=== PATIENT | female | born 1985 | race Caucasian/White ===

== ENCOUNTER 2021-01-09 20:49 | Emergency (ER) | payer OTHER, SELFPAY ==
[2021-01-09 20:57] VITALS: BP 115/74; PULSE 93; RESP 18; TEMP 37.1; O2SAT 98; BMI 28.1
[2021-01-09 21:51] VITALS: BP 102/70; PULSE 92; RESP 16; O2SAT 98
--- NOTE | 2021-01-09 22:27 | ED_ITS ---
HPI - Overdose General Chief Complaint: Overdose Stated Complaint: od accidental Time Seen by Provider: 01/09/21 22:00 Source: patient Mode of arrival: ambulatory History of Present Illness HPI Narrative: This is a 35-year-old female who presents with concerns after she misread the instructions for her prednisone taper today and took all 24 mg of prednisone at once instead of to tablets 3 times a day. This was the initial dosage of her taper as she was evaluated at urgent care for shortness of breath and asthma exacerbation. Patient states that she feels otherwise much better and feels that the asthma was exacerbated by a recent diagnosis of COVID-19 for which she is on her 10th day of isolation. Patient denies any thoughts of wanting to kill herself or harm anybody else and denies any symptoms of depression. complaint: accidental overdose Related Data Home Medications Medication Instructions Recorded Confirmed flu vac [id number] 36mos up(PF) ml IM 09/10/20 12/26/20 fluocinonide 0.05 % topical TOPICAL 09/10/20 12/26/20 ointment ketoconazole 2 % shampoo 1 applic TOPICAL 2XW 09/10/20 12/26/20 norethindrone 1 mg-ethinyl 1 tab PO DAILY 09/10/20 12/26/20 estradiol 20 mcg (21)-iron 75 mg (7) tablet Previous Rx's Medication Instructions Recorded cetirizine 5 mg-pseudoephedrine ER 1 tab PO Q12H PRN #60 tab 09/10/20 120 mg tablet,extended release,12hr fluticasone propionate 50 2 spray INTRANASAL DAILY #15.8 ml 09/10/20 mcg/actuation nasal spray,suspension ciprofloxacin HCl 500 mg tablet 500 mg PO BID #14 tab 09/11/20 azithromycin 250 mg tablet See Rx Instructions PO .COMPLEX #6 12/31/20 tab Allergies Allergy/AdvReac Type Severity Reaction Status Date / Time ibuprofen [Ibuprofen] Allergy Severe THROAT Verified 12/26/20 13:33 SWELLS, Tongue swelling Penicillins Allergy Severe THROAT Verified 12/26/20 13:33 SWELLS Review of Systems Review of Systems: Pertinent positives and negatives as stated in HPI 10 point review of systems is otherwise negative. PMFSH Past Medical History Source: nursing notes reviewed Medical History (Updated 01/09/21 @ 22:34 by Yuliet Sainz MD) Asthma Surgical History History of tubal ligation Family History Family History Father Medical history unknown Mother Medical history unknown Maternal Grandmother Hypertension Maternal Grandfather Hypertension Paternal Grandfather No problems noted. Social History Social History Alcohol intake: never Smoking Status: Unknown if ever smoked Smoked in Last 30 Days: No Use of substances other than those prescribed or required for medical reasons: No Advance Directives: No Advance Directives Information Provided: No Physical Exam Vital Signs: Vital Signs: Last Vital Signs Temp 98.7 F 01/09/21 20:57 Pulse 92 01/09/21 21:51 Resp 16 01/09/21 21:51 BP 102/70 01/09/21 21:51 Pulse Ox 98 01/09/21 21:51 Body Mass Index 28.1 VITAL SIGNS: Reviewed. GENERAL: Well developed, well nourished, in no acute distress. OROPHARYNX: no oral lesions noted, posterior pharynx clear NECK: Supple, no adenopathy LUNGS: Normal breath sounds. No adventitious sounds or accessory muscle use. SpO2<98> CARDIOVASCULAR: Regular rate and rhythm without noted murmurs ABDOMEN: Soft, non-tender, non-distended with bowel sounds. NEUROLOGIC: Alert and oriented x 4 PSYCH: Normal affect, thought process intact Course Course Course Narrative: This is a 35-year-old female with history and clinical presentation of accidental overdose of prednisone due to unclear understanding of prescription directions. Patient denies any suicidal ideation and was counseled on side effects of steroid such as increased acid production, hypertension, elevated blood sugar. She was encouraged to otherwise follow the taper instructions for day 2 and to follow-up with her primary care provider. Discharge Plan Discharge Clinical Impression: Accidental overdose Qualifiers: Encounter type: initial encounter Qualified Code(s): T50.901A - Poisoning by unspecified drugs, medicaments and biological substances, accidental (unintentional), initial encounter Patient Disposition: Home, Self-Care Instructions: Asthma (ED) Additional Instructions: Please follow-up with your primary care provider in the next 2-3 days for re- evaluation outpatient management of your asthma. Do not hesitate to return to the emergency department should you experience any acute worsening of your symptoms. Prescriptions: No Action azithromycin 250 mg tablet See Rx Instructions PO .COMPLEX Qty: 6 RF: 0 Afluria Qd 2020-21(3yr up)(PF) 60 mcg (15 mcg x 4)/0.5 mL syringe IM RF: 0 norethindrone-e.estradiol-iron 1 mg-20 mcg (21)/75 mg (7) tablet 1 tab PO DAILY RF: 0 fluocinonide 0.05 % ointment topical RF: 0 ketoconazole 2 % shampoo 1 applic topical 2XW RF: 0 cetirizine-pseudoephedrine [Zyrtec-D] 5-120 mg tablet extended release 12 hr 1 tab PO Q12H PRN (Reason: allergy symptoms) Qty: 60 RF: 0 fluticasone propionate [Flonase Allergy Relief] 50 mcg/actuation spray,suspension 2 spray intranasal DAILY Qty: 15.8 RF: 0 ciprofloxacin HCl 500 mg tablet 500 mg PO BID Qty: 14 RF: 0 Referrals: Jackson Figueroa MD [Primary Care Provider] - 2 days (Re-evaluation outpatient management asthma exacerbation)
[2021-01-09 22:28] LABS: Glucose, Whole Blood 106 mg/dL (60-115)
== END 2021-01-09 22:41 | disposition home or self-care (01) ==
PROVIDERS: Emergency Provider Student in an Organized Health Care Education/Training Program; PCP Internal Medicine
DX: T38.0X1A Poisoning by glucocorticoids and synthetic analogues, accidental (unintentional), initial encounter (principal); X58.XXXA Exposure to other specified factors, initial encounter; J45.909 Unspecified asthma, uncomplicated; R06.02 Shortness of breath; Y92.9 Unspecified place or not applicable; Z86.16 Personal history of COVID-19; Z79.899 Other long term (current) drug therapy
CPT/HCPCS: 82947; 99285

== ENCOUNTER 2021-01-15 11:34 | Outpatient (REF) | payer OTHER, SELFPAY ==
--- NOTE | ~2021-01-15 | XR_ITS ---
EXAMINATION: XR CHEST CLINICAL INFORMATION: Shortness of breath. COMPARISON: Chest 04/12/2017 TECHNIQUE: 2 views of the chest were obtained. FINDINGS: No significant abnormality is noted involving the heart, lungs, mediastinum, bony thorax or soft tissues. XR/XR chest 2V IMPRESSION: Unremarkable chest examination.
== END 2021-01-15 11:35 | disposition home or self-care (01) ==
LOC: HO.HMGCX 11:34
PROVIDERS: PCP Internal Medicine; Visit Provider Hospitalist
DX: R06.02 Shortness of breath (principal)
CPT/HCPCS: 71046

== ENCOUNTER → 2021-08-20 13:58 | Outpatient (BNVA) | payer SELFPAY | PROVIDERS: PCP Internal Medicine; Visit Provider Internal Medicine | DX: Z02.79 Encounter for issue of other medical certificate (principal) ==

== ENCOUNTER 2022-07-06 10:45 | Outpatient (REF) | payer OTHER, SELFPAY ==
--- NOTE | ~2022-07-06 | XR_ITS ---
EXAMINATION: XR FOOT, LEFT CLINICAL INFORMATION: Left foot pain COMPARISON: None TECHNIQUE: AP, lateral, and oblique views of the left foot. FINDINGS: No fracture or dislocation. Joint spaces throughout the foot are maintained. No osteophytes or erosions. Lisfranc alignment is within normal limits. Small plantar calcaneal enthesophyte/spur, unchanged. No ankle joint effusion. XR/XR foot LT 2V IMPRESSION: 1. No osseous injury or osteoarthritic change. 2. Small plantar cranial spur.
--- NOTE | ~2022-07-06 | XR_ITS ---
EXAMINATION: XR LUMBOSACRAL SPINE CLINICAL INFORMATION: Dorsalgia COMPARISON: Lumbar spine radiographs 04/05/2012 TECHNIQUE: Three views of the lumbosacral spine. FINDINGS: Normal alignment of the lumbar spine. No listhesis. Vertebral body heights and intervertebral disc heights are maintained. No endplate osteophytes. No pars defects. SI joints appear congruent and intact. XR/XR lumbar spine 2-3V IMPRESSION: 1. No subluxation or fracture. 2. Preserved intervertebral disc heights.
== END 2022-07-06 10:46 | disposition home or self-care (01) ==
LOC: HO.XRAY 10:45
PROVIDERS: PCP Internal Medicine; Visit Provider Internal Medicine
DX: M54.9 Dorsalgia, unspecified (principal); M79.672 Pain in left foot
CPT/HCPCS: 72100; 73620

== ENCOUNTER 2024-10-12 10:24 | Emergency (ER) | payer OTHER, SELFPAY ==
[2024-10-12 10:35] VITALS: BP 120/76; PULSE 78; RESP 16; TEMP 36.6; O2SAT 100; BMI 30.5
--- NOTE | 2024-10-12 12:15 | ED_ITS ---
HPI - Dental/Oral General Chief complaint: Dental/Oral Stated complaint: Dental Infection Time Seen by Provider: 10/12/24 12:01 Source: patient Mode of arrival: ambulatory Limitations: no limitations History of Present Illness ED Provider: Dr. Randa Farris HPI Narrative: Patient comes to the emergency room complaining dental pain in the right mandibular side since yesterday night. Patient states that when she was eating, it started hurting. Patient denies any ear pain, any difficulty swallowing. Patient states that she would try to go to the her dentist today but it was closed. Related Data Home Medications ?Medication ?Instructions ?Recorded ?Confirmed flu vac [id number] 36mos up(PF) 60 ml IM 09/10/20 07/06/22 mcg (15 mcg x4)/0.5 mL IM syringe Previous Rx's ?Medication ?Instructions ?Recorded cetirizine 5 mg-pseudoephedrine ER 1 tab PO Q12H PRN allergy symptoms 09/10/20 120 mg tablet,extended #60 tabs release,12hr (Zyrtec-D) ketoconazole 2 % shampoo 1 appl topical 3XW #120 mL 10/29/21 tobramycin 0.3 % eye drops (Tobrex) 1 drp ophthalmic (eye) Q4H #5 mL 04/27/22 albuterol sulfate 90 mcg/actuation 2 puff inhalation Q4-6H #8.5 grams 07/06/22 aerosol inhaler (ProAir HFA) clindamycin HCl 150 mg capsule 150 mg PO TID 7 days #21 caps 10/12/24 tramadol 50 mg tablet 50 mg PO BID PRN pain #7 tabs 10/12/24 tramadol 50 mg tablet 50 mg PO BID PRN pain #7 tabs 10/12/24 Allergies Allergy/AdvReac Type Severity Reaction Status Date / Time ibuprofen [Ibuprofen] Allergy Severe THROAT Verified 10/12/24 10:38 SAGE, Tongue swelling Penicillins Allergy Severe THROAT Verified 10/12/24 10:38 SAGE Review of Systems Review of Systems: Constitutional : No Weight loss, No Fever, No Chills, No Night Sweats, No Fa tigue, No Malaise ENT/Mouth : Complaining of dental pain right mandibular side,No Hearing loss, No Ear Pain, No Nasal Congestion, No Sinus Pain, No Hoarseness, No sore throat, No Rhinorrhea, No Swallowing Difficulty Eyes: No Eye Pain, No Swelling, No Redness, No Foreign Body, No Discharge, No Vision Changes Cardiovascular : No Chest Pain, No SOB, No Dyspnea on Exertion, No Orthopnea, No Edema, No Palpitations Respiratory : No Cough, No Sputum, No Wheezing, No Smoke Exposure, No Dyspnea Gastrointestinal : No Nausea, No Vomiting, No Diarrhea, No Constipation, No abdominal Pain, No Hematochezia, No Melena Genitourinary : no irregular bleeding, No Dysuria, No Urinary Frequency, No Hematuria, No Urinary Incontinence, No Urgency, No Flank Pain, No Urinary Flow Changes, No Hesitancy Musculoskeletal : No joint pain, No Myalgias, No Joint Swelling Skin : No Skin Lesions, No rash Neuro : No Weakness, No Numbness, No Paresthesias, No Loss of Consciousness, No Dizziness, No Headache Psych : No Anxiety/Panic, No Depression, No SI/HI/AH/VH, No Social Issues, Heme/Lymph: No Bruising, No Bleeding,No Lymphadenopathy Endocrine : No Polyuria, No Polydipsia, No Temperature Intolerance [facility] Past Medical History Medical History Seborrheic dermatitis Asthma Surgical History History of tubal ligation Family History Family History Father Medical history unknown Mother Medical history unknown Maternal Grandmother Hypertension Maternal Grandfather Hypertension Paternal Grandfather No problems noted. Social History Social History Housing: House Alcohol intake: never Patient Tobacco Use Status: Former Tobacco user Tobacco use type: Cigarette e-Cigarette/Vaping Use: Never Used Second Hand Smoke Exposure: No Advance Directives: No Advance Directives Information Provided: Yes Do you have a plan to hurt others: No Plan service: No Current occupational status: employed Cognitive needs: No Hearing needs: No Vision needs: No Physical Exam Vital Signs: Vital Signs: Last Vital Signs Temp 97.8 F 10/12/24 12:58 Pulse 78 10/12/24 12:58 Resp 16 10/12/24 12:58 BP 120/76 10/12/24 12:58 Pulse Ox 100 10/12/24 12:58 O2 Del Method Room Air 10/12/24 12:58 BMI result Body Mass Index 30.5 Const: Other: Appearance: Alert. Oriented X3. No acute distress. Eyes: Pupils equal, round and reactive to light. ENT: Pharynx normal. there is no obvious abscess that could be drained. There is no erythema or gingivitis that is obvious. However, patient has significant pain to palpation over the last molar on the right maxillary side. Tympanic ear membranes bilaterally within normal limits. No mastoid bone tenderness bilaterally Neck: Normal inspection. Neck supple. No lymph nodes noted. No crepitus CVS: Normal heart rate and rhythm. Pulses normal. Normal S1 and S2 Respiratory: No respiratory distress. Breath sounds normal. No Wheezing. No rales Abdomen: Soft and nontender. No rigidity. No distention. Skin: Skin warm and dry. Normal skin color. Normal skin turgor. Extremities: No lower extremity edema. No Lacerations. No Rash Neuro: Oriented X 3. No motor deficit. No sensory deficit. Moving all extremities. No slurred speech. CN 2 through 12 grossly intact Psych: calm, cooperative, normal affect Medications Administered Discontinued Medications Generic Name Dose Route Start Last Admin Trade Name Freq PRN Reason Stop Dose Admin Clindamycin HCl 300 mg 10/12/24 12:14 10/12/24 12:53 Clindamycin Hcl 300 Mg Capsule PO 10/12/24 12:15 300 mg ONCE ONE Administration Morphine Sulfate 1 mg 10/12/24 12:14 10/12/24 12:54 Morphine Sulfate 2 Mg/Ml Cartridge IM 10/12/24 12:15 Not Given ONCE ONE Protocol Medical Decision Making Medical Decision Making [facility] Narrative: patient looks uncomfortable, - patient is allergic to NSAIDs and penicillin both causing anaphylaxis - patient was given IM morphine and clindamycin p.o.. Patient will follow-up with her dentist early next week. Discharge Plan Discharge Clinical Impression: Pain, dental Patient Disposition: Home, Self-Care Instructions: Toothache (ED) Additional Instructions: Please follow-up with your primary care physician tomorrow. If you have any worsening or new symptoms, please return to the emergency room or call 911 Prescriptions: New clindamycin HCl 150 mg capsule 150 mg PO TID 7 Days Qty: 21 0RF tramadol 50 mg tablet 50 mg PO BID PRN (Reason: pain) Qty: 7 0RF tramadol 50 mg tablet 50 mg PO BID PRN (Reason: pain) Qty: 7 0RF No Action Afluria Qd 2019-(3yr up)(PF) 60 mcg (15 mcg x 4)/0.5 mL syringe IM cetirizine-pseudoephedrine [Zyrtec-D] 5-120 mg tablet extended release 12 hr 1 tab PO Q12H PRN (Reason: allergy symptoms) Qty: 60 0RF tobramycin [Tobrex] 0.3 % drops 1 drp ophthalmic (eye) Q4H Qty: 5 0RF ketoconazole 2 % shampoo 1 appl topical 3XW Qty: 120 5RF albuterol sulfate [ProAir HFA] 90 mcg/actuation HFA aerosol inhaler 2 puff inhalation Q4-6H Qty: 8.5 8RF Stand Alone Forms: Work/School Release Interventions: ED Discharge Assessment Last Done: 10/12/24 12:58 Discharge Date/Time: 10/12/24 12:58 Print Language: Hungarian
[2024-10-12] MEDS: Clindamycin HCL 300 MG CAPSULE PO (12:53)
[2024-10-12 12:58] VITALS: BP 120/76; PULSE 78; RESP 16; TEMP 36.6; O2SAT 100
== END 2024-10-12 12:58 | disposition home or self-care (01) ==
PROVIDERS: Emergency Provider Emergency Medicine; PCP Internal Medicine
DX: K08.89 Other specified disorders of teeth and supporting structures (principal); Z79.899 Other long term (current) drug therapy
CPT/HCPCS: 99282; 99283

== ENCOUNTER 2024-12-11 14:36 | Outpatient (AMB) | payer OTHER, SELFPAY ==
[2024-12-11 14:40] VITALS: BP 110/80; PULSE 92; TEMP 36.1; O2SAT 97; BMI 30.4
--- NOTE | 2024-12-11 14:40 | MHC.PC.OV ---
Vital Signs 12/11/24 14:40 Height 5 ft 7 in Weight 194 lb 4 oz BMI 30.4 BP 110/80 Blood Pressure Location Lt brachial Position Sitting Pulse 92 Pulse Source Pulse Oximeter Temp 96.9 F Temp Source Temporal Artery Scan Pulse Oximetry (%) 97 Oxygen Delivery Method Room Air Intake Visit Reasons: annual exam [employer] Required: No Accompanied by: Self / Same As Patient Allergies ibuprofen [Ibuprofen] Allergy (Severe, Verified 12/11/24 14:44) THROAT SWELLS, Tongue swelling Penicillins Allergy (Severe, Verified 12/11/24 14:44) THROAT SWELLS Medication List - Last Reconciled 12/12/24 by Jackson Figueroa MD albuterol sulfate 90 mcg/actuation (ProAir HFA) 2 puffs inhalation Q4-6H cetirizine-pseudoephedrine 5-120 mg ER (Zyrtec-D) 1 tab PO Q12H PRN clindamycin HCl 150 mg PO TID 7 days flu vac [id number] 36mos up(PF) mL IM ketoconazole 2% 1 appl topical 3XW tobramycin 0.3% (Tobrex) 1 drp ophthalmic (eye) Q4H tramadol 50 mg PO BID PRN tramadol 50 mg PO BID PRN Tobacco use date assessed: 12/11/24 Dental Screening Dental Screen Date: 12/11/24 Did you have a dental visit in the last 12 months?: Yes Did you have a dental problem in the last 6 months where you did not have access to dental care?: No Was dental information given to patient?: Patient has dentist HPI annual exam HPI Details mild asthma PFSH Medical History Seborrheic dermatitis Asthma Surgical History History of tubal ligation Family History Father Medical history unknown Mother Medical history unknown Maternal Grandmother Hypertension Maternal Grandfather Hypertension Paternal Grandfather No problems noted. Social History Housing: House Alcohol intake: never Patient Tobacco Use Status: Former Tobacco user Tobacco use type: Cigarette e-Cigarette/Vaping Use: Never Used Second Hand Smoke Exposure: No service: No Current occupational status: employed Cognitive needs: No Hearing needs: No Vision needs: No Questionnaire PHQ-9 Over the last 2 weeks, how often have you been bothered by any of the following problems? 1. Little interest or pleasure in doing things: not at all 2. Feeling down, depressed, or hopeless: not at all 3. Trouble falling or staying asleep, or sleeping too much: not at all 4. Feeling tired or having little energy: not at all 5. Poor appetite or overeating: not at all 6. Feeling bad about yourself - or that you are a failure or have let yourself or your family down: not at all 7. Trouble concentrating on things, such as reading the newspaper or watching television: not at all 8. Moving or speaking so slowly that other people could have noticed. Or the opposite - being so fidgety or restless that you have been moving around a lot more than usual: not at all 9. Thoughts that you would be better off or of hurting yourself in some way: not at all Total score: 0 Depression Screening Interpretation: Negative Depression Screening Done: Yes 34708 - PHQ-9 Billing: Yes Source: Developed by Drs. Jamey Ontiveros, Candy Roman, Chema Quintana and colleagues, with an educational kei from [employer]. Thrive Questionnaire Date Thrive assessed: 12/11/24 I am a: Patient What is your living situation today?: I have a steady place to live Within the past 12 months, did the food you bought not last and you didn't have the money to get more?: Never true Within the past 12 months, did you worry whether your food would run out before you got money to buy more?: Never true Do you have trouble paying for medicines?: No Do you have trouble getting transportation to medical appointments?: No Do you have trouble paying your heating and electricity bill?: No Do you have trouble taking care of your child, family member or friend?: No Do you have trouble with day-to-day activities such as bathing, preparing meals, shopping, managing finances, etc.?: No Are you currently unemployed and looking for a job?: No Are you interested in more education?: No Please select the resources that you would like help with: None Currently or been in a relationship where the following occur: No concerns reported THRIVE Score: 0 AUDIT C Alcohol Use Questionnaire (AUDIT-C) 1. How often do you have a drink containing alcohol?: Never 3. How often do you have six or more drinks on one occasion?: Never Total Score: 0 ADELAIDA-7 AMB Questionnaire ADELAIDA-7 Date ADELAIDA - 7 assessed: 12/11/24 Feeling nervous, anxious, or on edge: 0 = Not at all Not being able to stop or control worryin = Not at all Worrying too much about different things: 0 = Not at all Trouble relaxin = Not at all Being so restless that it is hard to sit still: 0 = Not at all Becoming easily annoyed or irritable: 0 = Not at all Feeling afraid as if something awful might happen: 0 = Not at all Total ADELAIDA-7 score (0-4 normal; 5-9 mild; 10-14 moderate; 15-21 severe): 0 Source: Developed by Drs. Jamey Ontiveros, Candy Roman, Chema Quintana and colleagues, with an educational kei from [employer]. ADELAIDA-7 Assessment Billing ADELAIDA-7 Assessment Tool: ADELAIDA-7 Assessment 76209 Review of Systems Const Denies chills, Denies fatigue, Denies headache(s) and Denies weight loss Eyes Denies change in vision, Denies diplopia and Denies eye pain ENT Denies vertigo, Denies dizziness, Denies headache(s) and Denies nasal discharge Card Denies chest pain, Denies rapid heart rate and Denies dyspnea on exertion Resp Denies chest congestion, Denies cough, Denies pain with cough and Denies dyspnea on exertion GI Denies abdominal pain, Denies hematochezia and Denies change in bowel habits Musc Denies myalgias, Denies arthralgias and Denies joint swelling Skin/Breast Denies lesions and Denies unusual bruising Neuro Denies vertigo, Denies dizziness, Denies headache(s) and Denies focal weakness Endo Denies fatigue Physical exam (Primary Care) Vital Signs: Last Vital Signs Temp 96.9 F 12/11/24 14:40 Pulse 92 12/11/24 14:40 BP 110/80 12/11/24 14:40 Pulse Ox 97 12/11/24 14:40 Oxygen Delivery Method Room Air 12/11/24 14:40 BMI result Body Mass Index 30.4 Tobacco/Smoking Status: Tobacco use Status Tobacco use date assessed 12/11/24 12/11/24 14:45 Patient Tobacco Use Status Former Tobacco user 12/11/24 14:45 Tobacco use type Cigarette 12/11/24 14:45 e-Cigarette/Vaping Use Never Used 12/11/24 14:45 PHQ-9: PHQ-9 Score PHQ-9: Total score 0 12/11/24 14:45 Depression Screening Interpretation: Negative Thrive Assessment: Date of Thrive Assessment Date Thrive assessed 12/11/24 12/11/24 14:45 Currently or been in a relationship where the following occur: No concerns reported Const General: cooperative, healthy appearing and no acute distress Orientation/consciousness: oriented to person, oriented to place and oriented to time HENMT Head: Yes normal to inspection, Yes normocephalic and Yes atraumatic Mouth: Normal oral and palatal mucosa present and tongue normal Throat: Yes posterior oropharynx normal and Yes uvula midline Eyes General: appearance normal, both eyes and all related structures Neck Neck: Yes normal visual inspection, Yes full ROM and Yes no lymphadenopathy Thyroid: Thyroid normal Carotids: normal carotid upstroke Chest Chest palpation & inspection: normal inspection of the chest Resp Effort & Inspection: normal respiratory effort and able to speak in complete sentences Auscultation: clear to auscultation bilaterally Cardio Jugular venous distension: no JVD Palpation: normal PMI Rate: regular rate Rhythm: regular rhythm Heart sounds: S1 normal heart sound present and S2 normal heart sound present GI Inspection: Yes normal to inspection Palpation (GI): Soft to palpation and No hepatosplenomegaly present Auscultation: normal bowel sounds General: Yes no CVA tenderness Back/Spine/Pelvis Back: no CVA tenderness Skin General skin exam: no rashes or lesions noted Neuro General: oriented to person, oriented to place and oriented to time Extrem General: Yes normal to inspection and Yes full ROM Coding Level of Care Code Est Pt Prev Care 18-39y(70314) Diagnoses Physical exam Z00.00 Asthma J45.909 Additional Codes ADELAIDA-7 Assessment Billing - ADELAIDA-7 Assessment Tool: ADELAIDA-7 Assessment 55166 ([id number]) PHQ-9 - 17320 - PHQ-9 Billing: Yes ([id number]) Assessment & Plan Assessment & Plan (1) Physical exam: Code(s): Z00.00 - Encounter for general adult medical examination without abnormal findings Category: Medical Plan: stable; do labs (2) Asthma: Code(s): J45.909 - Unspecified asthma, uncomplicated Category: Medical Plan: stable same rx Orders: Orders Lipid Panel 12/11/24 Z13.220 - Encounter for screening for lipoid disorders Thyroid Stimulating Hormone 12/11/24 Z13.29 - Encounter for screening for other suspected endocrine disorder Complete Blood Count Auto Diff 12/11/24 Z13.0 - Encounter for screening for diseases of the blood and blood-forming organs and certain disorders involving the immune mechanism Comprehensive Elsie. Panel Fast 12/11/24 Z13.9 - Encounter for screening, unspecified
--- OUTSIDE RECORDS SUMMARY | 2024-12-11 15:30 | XMS_ITS | Data Portability ---
Author Organization [facility] [address] Address [address] [place] [address] Assessment No assessment recorded. Plan of Treatment Reminders Order Date Submit Date Provider Last Modified By Organization Details Last Modified Time Details Appointments None recorded. Lab None recorded. Referral None recorded. Procedures None recorded. Surgeries None recorded. Imaging None recorded. Medication Orders cyclobenzap rine 5 mg tablet 2022 023 [facility] #[id number], [address] [place], [address], 14:39:28 Patient TargetsNo targets recorded. Patient Instructions Encounter Date Encounter Id Patient Instructions Last Modified By Organization Details Last Modified Time 04/04/2023 [id number] neck pain: care instructions Not available 04/04/2023 14:39:26 torticollis: car e instructions Not available 04/04/2023 14:39:25 Reason for Referral None Reported. Problems No Known Problems Medical Equipment None Reported. Allergies Allergen ID Allergen Name Allergen Category Reaction Reaction Severity Criticality Documentation Date Start Date Code Code System Note Provider Name and Address Organization Details Recorded Time 779853 ibuprofen medicatio n Not available Not available Not available 04/04/2023 5640 RxNorm [facility] 14:09:49 458003 Product containin g penicilli n and antibioti c (product) medicatio n Not available Not available Not available 04/04/2023 92696 05 SNOMED [facility] 14:09:55 Medications Name Sig Start Date Stop Date Status Note LastModified by Organization Details LastModified Time ketoconazol e 2 % shampoo PLEASE SEE ATTACHED FOR DETAILED DIRECTION S 04/04 completed Not Available Not Available Not Available tobramycin 0.3 % eye drops INSTILL 1 DROP INTO THE EYE(S) EVERY 4 HOURS 04/04 completed Not Available Not Available Not Available fluocinonid e 0.05 % topical solution APPLY TO SCALP TWICE DAILY FOR UP TO 2 WEEKS, BREAK 1 WEEK AND REPEAT NEEDED FLAKING AND ITCHING 04/04 completed Not Available Not Available Not Available norethindro ne (contracept eugene) 0.35 mg tablet PLEASE SEE ATTACHED FOR DETAILED DIRECTION S active Not Available Not Available No t Available doxycycline hyclate 100 mg tablet PLEASE SEE ATTACHED FOR DETAILED DIRECTION S active Not Available Not Available No t Available cyclobenzap rine 5 mg tablet Take 1 tablet 3 times a day by oral route as needed for 5 days. 2022 active Not Available Not Available Not Avai lable fluocinolon e 0.01 % scalp oil and shower cap APPLY TO SCALP OVERNIGHT AND SHAMPOO OUT IN THE MORNING 1-2 TIMES A WEEK 04/04 completed Not Available Not Available Not Available Vitals Date Recorded Body height Provider Name an d Address Organization Details Last Updated DateTime 04/04/2023 170.18 cm LUISA CAVAZOS [facility] - [facility] 04/04/2023 14:11:12 Date Recorded Body mass index (BMI) Provider Name and Address Organization Details Last Updated DateTime 04/04/2023 30.5 kg/m2 LUISA CAVAZOS PA - [facility] 04/04/2023 14:11:15 Date Recorded Body weight Provider Name an d Address Organization Details Last Updated DateTime 04/04/2023 14462.51 g LUISA CAVAZOS PA - [facility] 04/04/2023 14:11:16 Date Recorded Body temperature Provider Name a nd Address Organization Details Last Updated DateTime 04/04/2023 97.6 [degF] LUISA CAVAZOS [facility] - [facility] 04/04/2023 14:11:55 Date Recorded Oxygen saturation Oxygen saturation in Arterial blood by Pulse oximetry Provider Name and Address Organization Details Last Updated DateTime 04/04/2023 98 % 98 % LUISA CAVAZOS PA - [facility] 04/04/2023 14:12:19 Date Recorded Heart rate Provider Name an d Address Organization Details Last Updated DateTime 04/04/2023 77 /min LUISA CAVAZOS PA - [facility] 04/04/2023 14:12:21 Date Recorded Respiratory rate Provider Name a nd Address Organization Details Last Updated DateTime 04/04/2023 18 /min LUISA CAVAZOS PA - [facility] 04/04/2023 14:12:24 Date Recorded Systolic blood pressure Diastolic blood pressure Provider Name and Address Organization Details Last Updated DateTime 04/04/2023 118 mm[Hg] 84 mm[Hg] LUISA CAVAZOS PA - [facility] 04/04/2023 14:12:17 Social History Question Answer Notes LastModified by Organizat ion Details LastModified Time Tobacco Smoking Status Never Smoker LUISA DEANZARA mao, PA - [facility] 04/04/2023 14:10:46 What Is Your Level Of Alcohol Consumption? None Information not available 04/04/2023 Are You Currently Employed? Yes Information not available 04/04/2023 Have You Had Direct Contact, Or Contact During Intimacy, With Monkeypox Rash, Scabs, Or Body Fluids From A Person With Monkeypox? No Information not available 04/04/2023 Do You Use Any Illicit Or Recreational Drugs? No Information not available 04/04/2023 Have You Recently Traveled Abroad? No Information not available 04/04/2023 Are You Currently In School? No Information not available 04/04/2023 Do You Or Have You Ever Used Any Other Forms Of Tobacco Or Nicotine? No Information not available 04/04/2023 Sex: Unknown Functional Status None recorded. Mental Status None recorded. Family History Relationship Description Onset Age of this Age Resolved Age Notes LastModified by Organization Details LastModified Time Father No current problems or disability Not available 03/15 14:10:24 Mother No current problems or disability Not available 03/15 14:10:24 Medical History No medical history recorded. Gynecological History Statement/Question Response Is there any chance of ? No Obstetrics History GPAL:G 0 P 0 0 0 0 Immunizations Vaccine Type Date Status Note Provider Nam e and Address Organization Details Recorded Time COVID-19, mRNA, LNP-S, PF, 100 mcg/0.5mL dose or 50 mcg/0.25mL dose 11/18/2021 completed LUISA CAVAZOS null, PA - [facility] 04/04/2023 14:09:38 COVID-19, mRNA, LNP-S, PF, 100 mcg/0.5mL dose or 50 mcg/0.25mL dose 03/11/2021 completed LUISA CAVAZOS null, PA - [facility] 04/04/2023 14:09:38 COVID-19, mRNA, LNP-S, PF, 100 mcg/0.5mL dose or 50 mcg/0.25mL dose 04/08/2021 completed LUISA CAVAZOS null, PA - [facility] 04/04/2023 14:09:39 Influenza, split virus, trivalent, PF 10/06/2015 completed LUISA CAVAZOS null, PA - [facility] 04/04/2023 14:09:39 Influenza, split virus, quadrivalent, PF 09/06/2020 completed LUISA CAVAZOS null, PA - [facility] 04/04/2023 14:09:39 Influenza, split virus, quadrivalent, PF 10/29/2021 completed LUISA CAVAZOS null, PA - [facility] 04/04/2023 14:09:39 Past Encounters Encounter ID Performer Location Encounter Start Date Encounter Closed Date Diagnosis/Indication Diagnosis SNOMED-CT Code Diagnosis ICD10 Code Diagnosis Note [id number] [address] [address] 09/29/2022 10:42:12 09/29/2022 12:39:43 [id number] [facility] [address] [place] [address] 02/17/2021 18:00:12 02/17/2021 19:11:18 [id number] [facility] [address] [place] [address] 01/09/2021 17:31:39 01/09/2021 18:43:01 [id number] [address] [address] [facility] [place] [address] 09/06/2020 18:05:55 09/06/2020 18:53:50 [id number] Esther Hernández MD [address] [facility] [address] [facility] [place] [address] 04/04/2023 09:47:37 04/04/2023 14:44:17 Neck pain 37883655 M54.2 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 Rest and progress to gentle movementIf worsens , or no improvemen t, get evaluated immediatel y Health Concerns Section Related Observation LastModified by Organization Detai ls LastModified Time None Recorded Concern Status LastModified by Organization Details LastModified Time None Recorded Advance Directives Directive None Recorded Payers Encounter Date Sequence Insurance Name Policy Number Policy Jerez Covered Member ID Jerez Member ID Guarantor Name 04/04/2023 PROMPT PAY Lore millerchristophe Marisol Notes Date Note Type Note Provider Name and Address Organization Details Recorded Time 04/04/2023 text/html Neck UCReported bypatient.Locatio n:bilateral Quality:throbbing ; sharp; constant; not changing Severity:moderate Duration:3 days Timing:cannot identify Context:cannot identify Associated Symptoms:no weakness; no numbness; no tingling; no swelling; no redness; no warmth; no ecchymosis Prior Imaging:x rayNotes:History of neck spasms in the past Esther Hernández MD [address] [place], [address], PA - [facility] 04/05/2023 15:19:19 OBGyn Episode No OBEpisode recorded.
== END 2024-12-11 16:07 | disposition home or self-care (01) ==
PROVIDERS: PCP Internal Medicine; Visit Provider Internal Medicine
DX: Z00.00 Encounter for general adult medical examination without abnormal findings (principal); J45.909 Unspecified asthma, uncomplicated

== ENCOUNTER → 2024-12-11 14:36 | Outpatient (BNVA) | payer OTHER, SELFPAY | PROVIDERS: PCP Internal Medicine; Visit Provider Internal Medicine | DX: Z00.00 Encounter for general adult medical examination without abnormal findings (principal); J45.909 Unspecified asthma, uncomplicated; Z87.891 Personal history of nicotine dependence | CPT/HCPCS: 96127; 99395 ==

== ENCOUNTER 2025-07-16 14:14 | Outpatient (AMB) | payer OTHER, SELFPAY ==
--- NOTE | 2025-07-16 14:15 | A.OFFPC_ITS ---
Vital Signs 07/16/25 14:21 Height 5 ft 7 in Weight 193 lb 8 oz BMI 30.3 BP 118/74 Blood Pressure Location Lt brachial Position Sitting Pulse 85 Pulse Source Pulse Oximeter Pulse Oximetry (%) 97 Oxygen Delivery Method Room Air Intake Visit Reasons: Jordy Dr Figueroa Rn Internal Medicine Required: No Accompanied by: Self / Same As Patient Allergies ibuprofen (Ibuprofen) Allergy (Severe, Verified 07/16/25 14:57) THROAT SWELLS, Tongue swelling Penicillins Allergy (Severe, Verified 07/16/25 14:57) THROAT SWELLS Medication List - Last Reconciled 07/16/25 by Cher Abreu PA-C albuterol sulfate 90 mcg/actuation (ProAir HFA) 2 puffs inhalation Q4-6H cetirizine-pseudoephedrine 5-120 mg ER (Zyrtec-D) 1 tab PO Q12H PRN clindamycin HCl 150 mg PO TID 7 days flu vac [id number] 36mos up(PF) mL IM ketoconazole 2% 1 appl topical 3XW Tobacco use date assessed: 07/16/25 Dental Screening Dental Screen Date: 07/16/25 Did you have a dental visit in the last 12 months?: Yes Did you have a dental problem in the last 6 months where you did not have access to dental care?: No Was dental information given to patient?: Patient has dentist HPI Jordy Dr Figueroa HPI Details 40 year old female with past medical his tory of low back pain last seen 11/2024 coming in for JORDY from Dr. Figueroa. Presenting with management of allergic rhinitis, asthma, weight gain, and sleep disturbances. Allergic rhinitis Persistent sneezing, itchy throat, and coughing, primarily in the morning or at night. Managed with [id number] allergy medications. Asthma Experiences chest tightness during allergy attacks, uses albuterol inhaler less than once a week. She may not be using her albuterol inhaler appropriately and typically will and she has shortness of breath or tightness she will do conservative measures instead of using her albuterol inhaler. Due to this it is difficult to discern if patient has good control of her asthma. Gained approximately 20 pounds since 2019, attributed to decreased exercise and possible hormonal changes. Reports poor sleep quality, waking frequently at night, denies shortness of breath or coughing at night. [facility] Medical History Seborrheic dermatitis Asthma Surgical History History of tubal ligation Family History Father Medical history unknown Mother Medical history unknown Maternal Grandmother Hypertension Maternal Grandfather Hypertension Paternal Grandfather No problems noted. Social History Housing: House Alcohol intake: never Patient Tobacco Use Status: Former Tobacco user Tobacco use type: Cigarette e-Cigarette/Vaping Use: Never Used Second Hand Smoke Exposure: No service: No Current occupational status: employed Cognitive needs: No Hearing needs: No Vision needs: No Questionnaire PHQ-9 Over the last 2 weeks, how often have you been bothered by any of the following problems? 1. Little interest or pleasure in doing things: not at all 2. Feeling down, depressed, or hopeless: not at all 3. Trouble falling or staying asleep, or sleeping too much: not at all 4. Feeling tired or having little energy: not at all 5. Poor appetite or overeating: not at all 6. Feeling bad about yourself - or that you are a failure or have let yourself or your family down: not at all 7. Trouble concentrating on things, such as reading the newspaper or watching television: not at all 8. Moving or speaking so slowly that other people could have noticed. Or the opposite - being so fidgety or restless that you have been moving around a lot more than usual: not at all 9. Thoughts that you would be better off or of hurting yourself in some way: not at all Total score: 0 Depression Screening Interpretation: Negative Depression Screening Done: Yes 90237 - PHQ-9 Billing: Yes Source: Developed by Drs. Jamey Ontiveros, Candy Roman, Chema Quintana and colleagues, with an educational kei from [employer]. Thrive Questionnaire Date Thrive assessed: 12/11/24 I am a: Patient What is your living situation today?: I have a steady place to live Within the past 12 months, did the food you bought not last and you didn't have the money to get more?: Never true Within the past 12 months, did you worry whether your food would run out before you got money to buy more?: Never true Do you have trouble paying for medicines?: No Do you have trouble getting transportation to medical appointments?: No Do you have trouble paying your heating and electricity bill?: No Do you have trouble taking care of your child, family member or friend?: No Do you have trouble with day-to-day activities such as bathing, preparing meals, shopping, managing finances, etc.?: No Are you currently unemployed and looking for a job?: No Are you interested in more education?: No Please select the resources that you would like help with: None Currently or been in a relationship where the following occur: No concerns reported THRIVE Score: 0 AUDIT C Alcohol Use Questionnaire (AUDIT-C) 1. How often do you have a drink containing alcohol?: Never 3. How often do you have six or more drinks on one occasion?: Never Total Score: 0 ADELAIDA-7 AMB Questionnaire ADELAIDA-7 Date ADELAIDA - 7 assessed: 12/11/24 Feeling nervous, anxious, or on edge: 0 = Not at all Not being able to stop or control worryin = Not at all Worrying too much about different things: 0 = Not at all Trouble relaxin = Not at all Being so restless that it is hard to sit still: 0 = Not at all Becoming easily annoyed or irritable: 0 = Not at all Feeling afraid as if something awful might happen: 0 = Not at all Total ADELAIDA-7 score (0-4 normal; 5-9 mild; 10-14 moderate; 15-21 severe): 0 Source: Developed by Drs. Jamey Ontiveros, Candy Roman, Chema Quintana and colleagues, with an educational kei from [employer]. ADELAIDA-7 Assessment Billing ADELAIDA-7 Assessment Tool: ADELAIDA-7 Assessment 85660 Review of Systems Const Denies body aches, Denies chills, Denies fever(s), Denies headache(s) and Denies poor appetite Eyes Reports no additional complaints ENT Denies dysphagia, Denies dizziness, Denies headache(s) and Denies odynophagia Card Denies chest pain, Denies syncope, Denies edema, Denies irregular heart rhythm, Denies lightheadedness and Denies dyspnea Resp Denies cough and Denies dyspnea GI Denies abdominal pain, Denies constipation, Denies dysphagia, Denies diarrhea, Denies nausea, Denies odynophagia and Denies vomiting Reports no additional complaints Musc Reports no additional complaints and Denies abnormal gait Skin/Breast Reports system reviewed and no additional complaints, except as documented Neuro Denies abnormal gait, Denies dizziness, Denies syncope and Denies headache(s) Psych Reports no additional complaints Physical exam (Primary Care) Vital Signs: Last Vital Signs Pulse 85 07/16/25 14:21 BP 118/74 07/16/25 14:21 Pulse Ox 97 07/16/25 14:21 Oxygen Delivery Method Room Air 07/16/25 14:21 BMI result Body Mass Index 30.3 Tobacco/Smoking Status: Tobacco use Status Tobacco use date assessed 07/16/25 07/16/25 14:27 Patient Tobacco Use Status Former Tobacco user 07/16/25 14:20 Tobacco use type Cigarette 07/16/25 14:20 e-Cigarette/Vaping Use Never Used 07/16/25 14:20 PHQ-9: PHQ-9 Score PHQ-9: Total score 0 07/16/25 16:25 Depression Screening Interpretation: Negative Thrive Assessment: Date of Thrive Assessment Date Thrive assessed 12/11/24 07/16/25 14:20 Currently or been in a relationship where the following occur: No concerns reported Const General: cooperative, healthy appearing, comfortable and no acute distress Orientation/consciousness: patient oriented x3 HENKY Head: Yes normocephalic Ears: hearing grossly normal bilaterally General nose exam: Normal external nose present Eyes General: appearance normal, both eyes and all related structures Conjunctivae: conjunctivae normal Neck Neck: Yes full ROM and Yes no lymphadenopathy Resp Effort & Inspection: normal respiratory effort Auscultation: clear to auscultation bilaterally, no crackles, no rales, no rhonchi and no wheezes Cardio Rate: regular rate Rhythm: regular rhythm Skin General skin exam: no rashes or lesions noted Neuro General: patient oriented x3 Gait exam (Neuro): Normal gait present Extrem General: Yes normal to inspection, Yes full ROM and No edema Psych Affect: normal affect Attitude: cooperative Insight: Good insight present (Psych) Judgement: Good judgement present (Psych) Coding Level of Care Code Est Pt Level 3 (39990) Diagnoses Sinusitis chronic, frontal J32.1 Asthma J45.909 Seborrheic dermatitis L21.9 Obesity (BMI 30.0-34.9) E66.811 Insomnia G47.00 Additional Codes ADELAIDA-7 Assessment Billing - ADELAIDA-7 Assessment Tool: ADELAIDA-7 Assessment 76505 ([id number]) PHQ-9 - 94143 - PHQ-9 Billing: Yes ([id number]) Assessment & Plan Assessment & Plan (1) Sinusitis chronic, frontal: Comment: 15 min on telephone Code(s): J32.1 - Chronic frontal sinusitis Category: Medical Plan: Referral was placed to ear nose and throat today. Discussed management of allergies which includes saline nasal spray, topical antihistamine such as Astepro or Flonase. She will continue on daily allergy medication as well and referral was placed to museum security chief today. (2) Asthma: Code(s): J45.909 - Unspecified asthma, uncomplicated Category: Medical Plan: Use albuterol inhaler during episodes of coughing or chest tightness. Follow-up if symptoms persist to evaluate need for maintenance inhaler. Avoid any irritants such as smoking in allergies. (3) Seborrheic dermatitis: Code(s): L21.9 - Seborrheic dermatitis, unspecified Category: Medical Plan: Continue with shampoo as needed. (4) Obesity (BMI 30.0-34.9): Code(s): E66.811 - Obesity, class 1 Category: Medical Plan: Healthy diet and regular exercise is encouraged. Engage in regular exercise and maintain a healthy diet. Follow-up visit planned to assess progress and discuss further interventions. (5) Insomnia: Code(s): G47.00 - Insomnia, unspecified Category: Medical Plan: Declining medical management today. Discussed at length sleep hygiene and patient was provided with educational resource. Plan During the visit, we discussed the management of allergic rhinitis, asthma, weight gain, and sleep disturbances. I recommended seeing an museum security chief for potential allergy shots and using an air purifier for pet allergies. We talked about the importance of using the albuterol inhaler during asthma episodes and considering a maintenance inhaler if symptoms persist. For weight management, I emphasized regular exercise and a healthy diet. We also reviewed sleep hygiene practices to improve sleep quality. Follow-up appointments were scheduled to monitor progress and adjust the treatment plan as needed. This note was constructed using voice recognition software. While every effort has been made to ensure accuracy and montessori lead teacher, still areas may have been included sometimes these areas may affect the content or meeting of the given symptoms. Total time spent caring for the patient today was 30 minutes. This includes time spent before the visit reviewing the chart, time spent during the visit, and time spent after the visit and documentation. Patient was informed and verbally consented to the use of an ambient scribe for clinic note documentation during this visit. Orders: Orders Complete Blood Count Auto Diff Today J45.909 - Unspecified asthma, uncomplicated, Z00.00 - Encounter for general adult medical examination without abnormal findings TSH reflex Free T4 Today E66.811 - Obesity, class 1, Z13.29 - Encounter for screening for other suspected endocrine disorder Vitamin B12 and Folate Today E66.811 - Obesity, class 1, Z13.21 - Encounter for screening for nutritional disorder Vitamin D 25-OH Total Today E66.811 - Obesity, class 1, Z13.21 - Encounter for screening for nutritional disorder Comprehensive Met. Panel Today J45.909 - Unspecified asthma, uncomplicated, Z00.00 - Encounter for general adult medical examination without abnormal findings Lipid Panel Today Z13.220 - Encounter for screening for lipoid disorders Referrals Ear/Nose/Throat Referral J32.1 - Chronic frontal sinusitis Allergy & Immunology Referral J32.1 - Chronic frontal sinusitis Medications: Discontinued clindamycin HCl Discontinued Reason: Patient no longer taking 150 mg PO TID 7 days 21 caps 0RF cetirizine-pseudoephedrine 5-120 mg ER (Zyrtec-D) Discontinued Reason: Patient no longer taking 1 tab PO Q12H PRN 60 tabs 0RF allergy symptoms J32.1 - Chronic frontal sinusitis
[2025-07-16 14:21] VITALS: BP 118/74; PULSE 85; O2SAT 97; BMI 30.3
== END 2025-07-16 15:35 | disposition home or self-care (01) ==
DX: J32.1 Chronic frontal sinusitis (principal); J45.909 Unspecified asthma, uncomplicated; E66.811 Obesity, class 1; Z68.30 Body mass index [BMI] 30.0-30.9, adult; L21.9 Seborrheic dermatitis, unspecified; G47.00 Insomnia, unspecified

== ENCOUNTER → 2025-07-16 14:14 | Outpatient (BNVA) | payer OTHER, SELFPAY | PROVIDERS: PCP Internal Medicine | DX: J32.1 Chronic frontal sinusitis (principal); M54.50 Low back pain, unspecified; J45.909 Unspecified asthma, uncomplicated; L21.9 Seborrheic dermatitis, unspecified; E66.811 Obesity, class 1; G47.00 Insomnia, unspecified | CPT/HCPCS: 96127; 99212 ==